=== PATIENT | female | born 1965 | race American Indian/Alaskan Native ===

== ENCOUNTER 2017-05-15 08:03 | Outpatient (CLI) | payer BC ==
--- NOTE | 2017-05-15 14:11 | Ultrasound Report ---
ULTRASOUND GUIDED NEEDLE CORE BIOPSY OF A LEFT AXILLARY LYMPH NODE WITH CLIP PLACEMENT : 05/15/17 08:03:00 CLINICAL: Left axillary lymphadenopathy. COMPARISON :A recent [facility] ultrasound. FINDINGS: The procedure was explained to the patient and informed consent was obtained. Ultrasound demonstrated the previously described largest and most suspicious lymph node. The skin in the axilla was prepped with Betadine and anesthetized with 1% lidocaine. Ultrasound guided needle core biopsy of the lymph node was performed through a small dermatotomy using 2% lidocaine with epinephrine for deep anesthesia and a 14-gauge Achieve biopsy device. 2 samples were obtained and placed in normal saline to be submitted for flow cytometry. 2 samples were obtained and placed in formalin. A clip was deployed within the lymph node. Hemostasis was achieved with minimal pressure and a sterile dressing was applied. The patient tolerated the procedure well and there were no apparent complications. She was discharged in good condition and was given instructions for wound care and followup. IMPRESSION: Uncomplicated ultrasound-guided needle core biopsy of a left lymph node with clip placement.
[2017-05-18 13:07] LABS: CYTOMETRY FIRST MARKER SCANNED INTO MED REC; FLOW CYTOMETRY >16 SCANNED INTO MED REC
== END 2017-05-15 08:04 | disposition home or self-care (01) ==
LOC: SPVWC 08:03
PROVIDERS: ATTEND Internal Medicine
DX: I88.8 Other nonspecific lymphadenitis (principal); N63.20 Unspecified lump in the left breast, unspecified quadrant
CPT/HCPCS: 38525; 88184; 88185; 88305; 88312